=== PATIENT | male | born 1980 | race Two or more races ===

== ENCOUNTER 2017-10-07 10:33 | Emergency (ER) | payer OTHER, MEDICAID ==
[2017-10-07 10:46] VITALS: BP 136/90; PULSE 86; RESP 18; TEMP 97.9; O2SAT 96
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
== END 2017-10-07 13:39 | disposition still patient (30) ==
DX: M25.512 Pain in left shoulder (principal); F17.200 Nicotine dependence, unspecified, uncomplicated

== ENCOUNTER 2018-06-17 14:37 | Emergency (ER) | payer MEDICAID ==
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
[2018-06-17] MEDS ORDERED: ACETAMINOPHEN 500 MG TAB PO ONE (16:14)
[2018-06-17 16:41] VITALS: BP 102/80
== END 2018-06-17 16:51 | disposition home or self-care (01) ==
DX: M25.511 Pain in right shoulder (principal); M54.2 Cervicalgia; Z59.0 Homelessness

== ENCOUNTER 2018-07-04 11:12 | Emergency (ER) | payer MEDICAID ==
[2018-07-04] MEDS ORDERED: ALBUTEROL 3 ML DEYVIAL IH ONE (11:40)
--- NOTE | 2018-07-04 12:19 | EDPHY ---
H & P Time Seen by Provider: 07/04/18 11:30 HPI/ROS: This patient has a cough for 2 weeks and complains of sputum production that is now yellow and green with a bit blood tinged sputum for the 1st time today that was bright red. He describes hacking coughing that tends to make him gag at times. He has had decreased sleep due the cough over the past few nights in addition. He reports associated subjective fevers and reports a sore throat today that he thinks is from frequent coughing. He came in by private vehicle for evaluation ROS: Constitutional: No high fevers or chills. He complains of mild fatigue the attributes to decreased sleep. HEENT: As per HPI. No ear pain or other complaints. No sinus pain. Pulmonary: No respiratory distress or significant dyspnea. No pleuritic pain Cardiovascular: No heart palpitations or lightheadedness GI: No abdominal pain. He did vomit once but attributes this to gagging reflex from coughing Integumentary: No skin rash 7 point review of symptoms is performed and otherwise negative with exception of pertinent positives and negatives listed in HPI and ROS Past Medical/Surgical History: Otherwise healthy Social History: Patient normally smokes marijuana but has not for the past 2 weeks due to his respiratory symptoms. He works at an [employer] facility Smoking Status: Never smoked Physical Exam: Physical Exam Vital signs are normal. General: No acute distress HEENT: Nose: Clear discharge bilaterally. No sinus tenderness to percussion. Ears: External canals and tympanic membranes are clear with no erythema or abnormal findings bilaterally. Oropharynx: No erythema or exudates. No dysphonia. No drooling or stridor. Eyes: Pupils equal and react to light. Extraocular motions are intact. Neck: Supple with no meningismus. No lymphadenopathy Lungs: Faint expiratory wheeze at the bases. No rales or rhonchi appreciated. Cardiac: Regular rate and rhythm with no murmur gallop or rub Skin: No rash or pallor. Neuro: Alert with no focal deficits noted. Initial differential diagnosis: Acute bronchitis, URI with reactive airway disease, doubt pneumonia given lack of rales or fever Constitutional: Initial Vital Signs Temperature (C) 36.6 C 07/04/18 11:18 Heart Rate 88 07/04/18 11:18 Respiratory Rate 16 07/04/18 11:18 Blood Pressure 123/77 H 07/04/18 11:18 O2 Sat (%) 98 07/04/18 11:18 O2 Delivery Mode Room Air Allergies/Adverse Reactions: No Known Allergies Allergy (Verified 07/04/18 11:17) Home Medications: Medication Instructions Recorded Miscellaneous Medical Supply [NO 1 ea MISC AD 07/10/12 HOME MEDS] Albuterol Hfa Anes Only [Proair 2 puffs IH Q4 PRN #1 mdi 07/04/18 Hfa Icu (*)] Azithromycin [Zithromax] 250 mg PO DAILY #6 tab 07/04/18 Benzonatate [Tessalon Pearles (RX)] 100 - 200 mg PO TID PRN #20 cap 07/04/18 Fluticasone Hfa 220 Mcg [Flovent 2 puffs IH DAILY #1 mdi 07/04/18 220 MCG Hfa MDI (*)] MDM/Departure - MDM Medications Given: Discontinued Medications Albuterol (Proventil Neb) 3 ml IH EDNOW ONE Stop: 07/04/18 11:41 Last Admin: 07/04/18 11:48 Dose: 3 ml ED Course/Re-evaluation: Albuterol neb with resolution of his coughing and symptomatic improvement. Discussion: Patient with findings consistent with bronchitis of 2 weeks duration with bloody sputum will treat with macrolide antibiotic. I counseled regarding this. Will plan to treat him with albuterol, Zithromax and Tessalon Perles. No clinical evidence to suggest lower respiratory infection, sepsis or other red flag findings. However the patient understands need to return emergency department should he develop worsening symptoms despite treatment plan. I also provide a follow up primary care physician for the patient - Depart Disposition: Home, Routine, Self-Care Clinical Impression: Bronchitis Instructions: Acute Bronchitis (ED) Additional Instructions: Diagnosis: Acute bronchitis Plan: Humidifier Albuterol inhaler with spacer for cough, wheeze or shortness of breath Zithromax antibiotic Tessalon Perles for cough at night that prevents sleep If you're cough has not improved over the next 5 days with above treatment plan , then add the steroid Flovent inhaler in addition and use that for 10 days No work for the next 2 days Follow-up with primary care physician listed below if her stool improving over the next 7-10 days with treatment plan Return for any significant worsening despite treatment plan Stand Alone Forms: Work Excuse Prescriptions: Albuterol Hfa Anes Only [Proair Hfa Icu (*)] 2 puffs IH Q4 PRN #1 mdi PRN Reason: Wheezing Azithromycin [Zithromax] 250 mg PO DAILY #6 tab Benzonatate [Tessalon Pearles (RX)] 100 - 200 mg PO TID PRN #20 cap PRN Reason: cough Fluticasone Hfa 220 Mcg [Flovent 220 MCG Hfa MDI (*)] 2 puffs IH DAILY #1 mdi Referrals: NONE *PRIMARY CARE P,. [Primary Care Provider] - As per Instructions Monik Arredondo MD [Medical Doctor] - As per Instructions
[2018-07-04 12:40] VITALS: BP 106/69
== END 2018-07-04 12:26 | disposition home or self-care (01) ==
LOC: CED 11:12
DX: J20.9 Acute bronchitis, unspecified (principal)
CPT/HCPCS: J7613

== ENCOUNTER 2018-10-24 11:34 | Emergency (ER) | payer MEDICAID ==
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
[2018-10-24 13:38] VITALS: BP 122/86
== END 2018-10-24 13:39 | disposition home or self-care (01) ==
DX: M24.411 Recurrent dislocation, right shoulder (principal); M25.562 Pain in left knee
CPT/HCPCS: A4565

== ENCOUNTER 2019-02-07 04:23 | Emergency (ER) | payer MEDICAID | END 2019-02-07 06:10 | disposition home or self-care (01) ==

== ENCOUNTER 2019-02-09 22:22 | Emergency (ER) | payer MEDICAID | END 2019-02-10 01:34 ==